=== PATIENT | female | born 1965 | race Caucasian/White ===

== ENCOUNTER 2016-12-23 05:44 | Day surgery (SDC) | payer OTHER ==
[~2016-12-23] VITALS: Ht 154.9 cm; Wt 77.4 kg
[~2016-12-23 05:44] MED LIST: RIVA20TA PO; TELM1TAB2 PO; folic acid PO
[2016-12-23 06:14] VITALS: BP 118/84
[2016-12-23] MEDS ORDERED: TELM1TAB PO (06:14)
[2016-12-23] MEDS ORDERED: LACTATED RINGERS 1,000 ML IV SCH (06:31)
[2016-12-23] MEDS ORDERED: PROPOFOL 10 MG/ML, 20ML ONE (07:29)
[2016-12-23] MEDS ORDERED: DEXAMETHASONE 4 MG/ML, 1ML ONE (07:29)
[2016-12-23] MEDS ORDERED: ONDANSETRON 2MG/ML, 2ML ONE (07:29)
[2016-12-23] MEDS ORDERED: MIDAZOLAM 1 MG/ML, 2ML IV PRN (08:00)
[2016-12-23] MEDS ORDERED: OXYcodone 5 MG/5 ML ORAL.SOL UDC PO PRN (08:00)
[2016-12-23] MEDS ORDERED: ALBUTEROL SULFATE 2.5 MG/3 ML NPPB PRN (08:00)
[2016-12-23] MEDS ORDERED: HYDROmorphone 1 MG/ML, 1ML IV PRN (08:00)
[2016-12-23] MEDS ORDERED: FENTANYL PF 100 MCG/2ML IV PRN (08:00)
[2016-12-23] MEDS ORDERED: PROMETHAZINE 25 MG/ML, 1ML IV PRN (08:00)
[2016-12-23] MEDS ORDERED: ACETAMINOPHEN 325 MG TABLET PO PRN (08:00)
[2016-12-23] MEDS ORDERED: ONDANSETRON 2MG/ML, 2ML IVPush PRN (08:00)
[2016-12-23] MEDS ORDERED: LABETALOL 5MG/ML, 20ML IV PRN (08:00)
[2016-12-23] MEDS ORDERED: hydrALAzine 20 MG/ML, 1ML IV PRN (08:00)
[2016-12-23] MEDS ORDERED: MEPERIDINE/PF 25MG/0.5ML IVPush PRN (08:00)
== END 2016-12-23 09:00 ==
LOC: OR 05:44
PROVIDERS: ATTEND Surgery
DX: K57.30 Diverticulosis of large intestine without perforation or abscess without bleeding (principal); I10 Essential (primary) hypertension; Z93.3 Colostomy status; Z85.118 Personal history of other malignant neoplasm of bronchus and lung; Z98.890 Other specified postprocedural states; Z91.09 Other allergy status, other than to drugs and biological substances
CPT/HCPCS: 44388; J1100; J2405; J2704; J7120

== ENCOUNTER 2017-01-26 07:18 | Inpatient (IN) | payer OTHER ==
[~2017-01-26] VITALS: Ht 154.9 cm; Wt 83.5 kg
[~2017-01-26 07:18] MED LIST changes: +TELM1TAB PO
[2017-01-26 07:51] VITALS: BP 125/88
[2017-01-26] MEDS ORDERED: LACTATED RINGERS 1,000 ML IV SCH (08:07)
[2017-01-26] MEDS ORDERED: VITA1TAB19 PO (08:07)
[2017-01-26] MEDS ORDERED: [UNRECOGNIZED DRUG - OTHER] PO (08:07)
[2017-01-26] MEDS ORDERED: POTA10TA6 PO (08:07)
[2017-01-26] MEDS ORDERED: LIDOCAINE 1%, 2ML ONE (08:16)
[2017-01-26] MEDS ORDERED: LIDOCAINE 1%, 2ML SQ PRN (08:30)
[2017-01-26] MEDS ORDERED: cloniDINE/PF 100 MCG/ML, 10 ML ONE (09:21)
[2017-01-26] MEDS ORDERED: FENTANYL PF 100 MCG/2ML ONE ×3 (09:40→12:56)
[2017-01-26] MEDS ORDERED: HYDROmorphone 1 MG/ML, 1ML ONE (09:41)
[2017-01-26] MEDS ORDERED: ROCURONIUM 10 MG/ML ONE ×3 (09:45)
[2017-01-26] MEDS ORDERED: NEOSTIGMINE 1 MG/ML, 10ML ONE (09:45)
[2017-01-26] MEDS ORDERED: LIDOCAINE-MPF 2% ,5ML ONE (09:45)
[2017-01-26] MEDS ORDERED: PROPOFOL 10 MG/ML, 20ML ONE (09:45)
[2017-01-26] MEDS ORDERED: GLYCOPYRROLATE 0.2MG/1ML, 5ML ONE (09:45)
[2017-01-26] MEDS ORDERED: CEFOTETAN 2 GM ONE (09:45)
[2017-01-26] MEDS ORDERED: ONDANSETRON 2MG/ML, 2ML ONE (09:45)
[2017-01-26] MEDS ORDERED: INDOCYANINE GREEN 25 MG VIAL ONE (10:23)
[2017-01-26] MEDS ORDERED: ONDANSETRON 2MG/ML, 2ML IVPush PRN (12:30)
[2017-01-26] MEDS ORDERED: hydrALAzine 20 MG/ML, 1ML IV PRN (12:30)
[2017-01-26] MEDS ORDERED: LABETALOL 5MG/ML, 20ML IV PRN (12:30)
[2017-01-26] MEDS ORDERED: FENTANYL PF 100 MCG/2ML IV PRN (12:30)
[2017-01-26] MEDS ORDERED: OXYcodone 5 MG/5 ML ORAL.SOL UDC PO PRN ×2 (12:30→15:30)
[2017-01-26] MEDS ORDERED: PROMETHAZINE 25 MG/ML, 1ML IV PRN (12:30)
[2017-01-26] MEDS ORDERED: ACETAMINOPHEN 325 MG TABLET PO PRN (12:30)
[2017-01-26] MEDS ORDERED: MIDAZOLAM 1 MG/ML, 2ML IV PRN (12:30)
[2017-01-26] MEDS ORDERED: ALBUTEROL SULFATE 2.5 MG/3 ML ONE (13:00)
[2017-01-26] MEDS ORDERED: HYDROmorphone 2 MG/ML, 1ML ONE (13:26)
[2017-01-26] MEDS: HYDROmorphone 1 MG/ML, 1ML IV PRN ×2 (13:28→13:42)
[2017-01-26] MEDS ORDERED: DIPHENHYDRAMINE 50 MG/ML, 1ML ONE (13:32)
[2017-01-26] MEDS ORDERED: DIPHENHYDRAMINE 50 MG/ML, 1ML IVPush PRN (14:00)
[2017-01-26 14:50] VITALS: BP 124/72
[2017-01-26] MEDS ORDERED: LORazepam 1MG TABLET PO PRN (15:30)
[2017-01-26] MEDS ORDERED: LORazepam 2 MG/ML, 1ML IV PRN (15:30)
[2017-01-26] MEDS ORDERED: HYDROmorphone 1 MG/ML, 1ML IV PRN ×2 (15:30)
[2017-01-26] MEDS: ACETAMINOPHEN 500 MG TABLET PO SCH ×2 (15:53→21:38)
[2017-01-26] MEDS: IBUPROFEN 600 MG TABLET PO SCH ×2 (15:53→23:32)
[2017-01-26] MEDS: POTASSIUM CHLORIDE 20 MEQ in D5%-0.45% NACL 1,000 ML IV SCH (15:53)
[2017-01-26 18:47] VITALS: BP 107/74
[2017-01-26 23:15] VITALS: BP 100/61
[2017-01-27 03:07] VITALS: BP 110/71
[2017-01-27 03:34] LABS: HEMATOCRIT 34.1 % (34.6-47.8); HEMOGLOBIN 11.5 g/dL (11.7-16.4); WHITE BLOOD COUNT 10.6 x10^3/uL (3.4-10)
[2017-01-27 03:41] LABS: BLOOD UREA NITROGEN 16 mg/dL (7-18)
[2017-01-27] MEDS: ACETAMINOPHEN 500 MG TABLET PO SCH ×4 (03:42→21:30)
[2017-01-27 07:58] VITALS: BP 106/64
[2017-01-27] MEDS: IBUPROFEN 600 MG TABLET PO SCH ×3 (08:10→23:46)
[2017-01-27] MEDS: ENOXAPARIN 40 MG/0.4 ML SQ SCH (09:09)
[2017-01-27] MEDS: POTASSIUM CHLORIDE 20 MEQ in D5%-0.45% NACL 1,000 ML IV SCH (11:42)
[2017-01-27 13:05] VITALS: BP 122/70
[2017-01-27 18:34] VITALS: BP 109/70
[2017-01-28 03:00] VITALS: BP 106/67
[2017-01-28] MEDS: ACETAMINOPHEN 500 MG TABLET PO SCH ×2 (03:30→09:10)
[2017-01-28 05:19] LABS: HEMATOCRIT 33.6 % (34.6-47.8); HEMOGLOBIN 11.4 g/dL (11.7-16.4); WHITE BLOOD COUNT 6.4 x10^3/uL (3.4-10)
[2017-01-28 05:29] LABS: BLOOD UREA NITROGEN 11 mg/dL (7-18)
[2017-01-28 06:45] VITALS: BP 116/73
[2017-01-28] MEDS: POTASSIUM CHLORIDE 20 MEQ in D5%-0.45% NACL 1,000 ML IV SCH (07:54)
[2017-01-28] MEDS: ENOXAPARIN 40 MG/0.4 ML SQ SCH (07:59)
[2017-01-28] MEDS: IBUPROFEN 600 MG TABLET PO SCH (07:59)
[2017-01-28] MEDS ORDERED: TRAM-47 PO (09:35)
== END 2017-01-28 10:49 | disposition home or self-care (01) | DRG 941 ==
LOC: ORIP 07:18 → 4NOR 14:51
PROVIDERS: ADMIT Surgery; ATTEND Surgery
PROC: 0DBB4ZZ Excision of Ileum, Percutaneous Endoscopic Approach (ICD-10-PCS; principal; 2017-01-26 09:30)
DX: Z46.89 Encounter for fitting and adjustment of other specified devices (principal)
CPT/HCPCS: 36415; 80048; 82040; 85025; 88304; 94640; J1170; J1650; J2405; J2704; J2710; J3010; J3480; J3490; J0735; J1200; J7120; S0074

== ENCOUNTER → 2017-03-10 | Outpatient (CLI) | payer OTHER ==
[~2017-03-10] MED LIST changes: +POTA10TA6 PO; +TRAM-47 PO; +VITA1TAB19 PO; +[UNRECOGNIZED DRUG - OTHER] PO
== END | disposition home or self-care (01) ==
LOC: RAD 08:08
PROVIDERS: ATTEND Surgery
DX: K56.699 Other intestinal obstruction unspecified as to partial versus complete obstruction (principal); Z93.2 Ileostomy status
CPT/HCPCS: 74270

== ENCOUNTER 2017-04-10 14:09 | Inpatient (IN) | payer OTHER ==
[~2017-04-10] VITALS: Ht 154.9 cm; Wt 81.1 kg
[2017-04-10] MEDS ORDERED: SODIUM CHLORIDE 0.9% 1,000ML IVBOLUS ONE ×2 (15:00→18:00)
[2017-04-10] MEDS ORDERED: SODIUM CHLORIDE FLUSH 10ML SYR IVF ONE (15:00)
[2017-04-10 15:30] LABS: RAPID INFLUENZA A Negative (Negative); RAPID INFLUENZA B Negative (Negative)
[2017-04-10 15:53] LABS: HEMATOCRIT 39.9 % (34.6-47.8); HEMOGLOBIN 13.5 g/dL (11.7-16.4)
[2017-04-10 16:05] LABS: BLOOD UREA NITROGEN 11 mg/dL (7-18)
[2017-04-10 16:09] LABS: ASPARTATE AMINO TRANSFERASE 18 U/L (15-37)
[2017-04-10] MEDS ORDERED: CEFTRIAXONE PMX 1GM/50ML 50 ML ONE (16:52)
[2017-04-10 17:02] LABS: IS PT STATUS REG ER OR PRE ER? YES
[2017-04-10] MEDS ORDERED: CEFTRIAXONE PMX 1GM/50ML 50 ML IV ONE (17:30)
[2017-04-10] MEDS ORDERED: SODIUM CHLORIDE 0.9% 1,000 ML IV ONE (18:50)
[2017-04-10] MEDS ORDERED: DIPHENHYDRAMINE 50 MG/ML, 1ML ONE (19:00)
[2017-04-10] MEDS ORDERED: DIPHENHYDRAMINE 50 MG/ML, 1ML IVPush ONE (19:30)
[2017-04-10] MEDS ORDERED: OMNIPAQUE 350 MG/ML, 100ML BOTTLE ONE (20:56)
[2017-04-10] MEDS ORDERED: RIVAROXABAN 20 MG TABLET PO ONE (21:00)
[2017-04-10] MEDS ORDERED: IBUPROFEN 200 MG TABLET ONE (21:03)
[2017-04-10] MEDS ORDERED: IBUPROFEN 200 MG TABLET PO ONE (21:30)
[2017-04-10] MEDS ORDERED: AZITHROMYCIN 500 MG in SODIUM CHLORIDE 0.9% 250 ML IV ONE (21:30)
[2017-04-10] MEDS: SODIUM CHLORIDE 0.9% 1,000 ML IV SCH (22:20)
[2017-04-10] MEDS ORDERED: POLYETHYLENE GLYCOL 17 GM PACKET PO PRN (22:30)
[2017-04-10] MEDS ORDERED: ACETAMINOPHEN 325 MG TABLET PO PRN (22:30)
[2017-04-10] MEDS ORDERED: ONDANSETRON 2MG/ML, 2ML IVPush PRN (22:30)
[2017-04-10] MEDS ORDERED: BISACODYL 10 MG SUPP PR PRN (22:30)
[2017-04-10 22:40] VITALS: BP 134/77
[2017-04-11 02:37] VITALS: BP 151/89
[2017-04-11] MEDS: SODIUM CHLORIDE 0.9% 1,000 ML IV SCH ×2 (05:18→16:48)
[2017-04-11 05:46] LABS: HEMATOCRIT 36.5 % (34.6-47.8); HEMOGLOBIN 12.4 g/dL (11.7-16.4); WHITE BLOOD COUNT 6.1 x10^3/uL (3.4-10)
[2017-04-11 05:50] LABS: BLOOD UREA NITROGEN 12 mg/dL (7-18)
[2017-04-11 05:55] LABS: ASPARTATE AMINO TRANSFERASE 17 U/L (15-37)
[2017-04-11 07:25] VITALS: BP 155/95
[2017-04-11 08:42] VITALS: BP 140/91
[2017-04-11] MEDS: POTASSIUM CHLORIDE 10 MEQ TABLET.ER PO SCH (10:03)
[2017-04-11] MEDS: MULTIVITS,STRESS FORMULA 1 TABLET PO SCH (10:03)
[2017-04-11] MEDS: SENNA/DOCUSATE TABLET PO SCH (10:04)
[2017-04-11] MEDS ORDERED: IBUPROFEN 200 MG TABLET PO PRN (12:30)
[2017-04-11 15:00] VITALS: BP 146/92
[2017-04-11] MEDS ORDERED: CEFTRIAXONE PMX 1GM/50ML 50 ML IV SCH (17:00)
[2017-04-11] MEDS: RIVAROXABAN 20 MG TABLET PO SCH (18:32)
[2017-04-11 19:45] VITALS: BP 155/89
[2017-04-11] MEDS ORDERED: AZITHROMYCIN 500 MG in SODIUM CHLORIDE 0.9% 250 ML IV SCH (21:30)
[2017-04-12 02:42] VITALS: BP 143/94
[2017-04-12 05:56] LABS: HEMOGLOBIN 11.8 g/dL (11.7-16.4); WHITE BLOOD COUNT 5.3 x10^3/uL (3.4-10)
[2017-04-12 06:13] LABS: ASPARTATE AMINO TRANSFERASE 17 U/L (15-37); BLOOD UREA NITROGEN 6 mg/dL (7-18)
[2017-04-12 07:45] VITALS: BP 176/105
[2017-04-12] MEDS: SODIUM CHLORIDE 0.9% 1,000 ML IV SCH (08:00)
[2017-04-12] MEDS ORDERED: CEFD300C37 PO (08:51)
[2017-04-12] MEDS ORDERED: DOXY100T PO (08:51)
[2017-04-12] MEDS: RIVAROXABAN 20 MG TABLET PO SCH (09:00)
[2017-04-12] MEDS ORDERED: AZITHROMYCIN 500 MG TABLET PO SCH (09:00)
[2017-04-12] MEDS: MULTIVITS,STRESS FORMULA 1 TABLET PO SCH (09:24)
[2017-04-12] MEDS: POTASSIUM CHLORIDE 10 MEQ TABLET.ER PO SCH (09:24)
[2017-04-12] MEDS: SENNA/DOCUSATE TABLET PO SCH (09:34)
[2017-04-12] MEDS ORDERED: CEFTRIAXONE PMX 1GM/50ML 50 ML IV SCH (10:00)
== END 2017-04-12 10:45 | disposition home or self-care (01) | DRG 871 ==
LOC: ED 17:38 → EDIP 21:13 → 4NOR 22:34
PROVIDERS: ADMIT Surgery; ATTEND Surgery
DX: A41.9 Sepsis, unspecified organism (principal); J18.1 Lobar pneumonia, unspecified organism; C79.31 Secondary malignant neoplasm of brain; D68.69 Other thrombophilia; C34.90 Malignant neoplasm of unspecified part of unspecified bronchus or lung; G81.94 Hemiplegia, unspecified affecting left nondominant side; I10 Essential (primary) hypertension; Z82.3 Family history of stroke; Z82.49 Family history of ischemic heart disease and other diseases of the circulatory system; Z83.3 Family history of diabetes mellitus; Z86.718 Personal history of other venous thrombosis and embolism; Z92.21 Personal history of antineoplastic chemotherapy; Z90.89 Acquired absence of other organs; Z88.8 Allergy status to other drugs, medicaments and biological substances; Z91.041 Radiographic dye allergy status
CPT/HCPCS: 36415; 71020; 71275; 80053; 81001; 83605; 83735; 84484; 85025; 87040; 87086; 87400; 93005; 93970; 96361; 96365; 96367; 96375; J0456; J0696; Q9967; J1200; J7030; J7050

== ENCOUNTER 2017-04-25 10:34 | Day surgery (SDC) | payer OTHER ==
[~2017-04-25] VITALS: Ht 154.9 cm; Wt 77.4 kg
[~2017-04-25 10:34] MED LIST changes: +CEFD300C37 PO; +DOXY100T PO
[2017-04-25] MEDS ORDERED: LACTATED RINGERS 1,000 ML IV SCH (10:55)
[2017-04-25] MEDS ORDERED: LIDOCAINE 1%, 2ML ONE (10:57)
[2017-04-25 10:58] VITALS: BP 143/96
[2017-04-25] MEDS ORDERED: LIDOCAINE 1%, 2ML SQ PRN (11:00)
[2017-04-25] MEDS ORDERED: MIDAZOLAM 1 MG/ML, 2ML ONE (12:09)
[2017-04-25] MEDS ORDERED: FENTANYL PF 100 MCG/2ML ONE (12:09)
[2017-04-25] MEDS ORDERED: PROPOFOL 50 ML ONE (12:10)
[2017-04-25] MEDS ORDERED: DEXAMETHASONE 4 MG/ML, 1ML ONE ×2 (12:20)
[2017-04-25] MEDS ORDERED: ONDANSETRON 2MG/ML, 2ML ONE (12:20)
[2017-04-25] MEDS ORDERED: KETOROLAC 30 MG/1 ML ONE (12:21)
[2017-04-25] MEDS ORDERED: FENTANYL PF 100 MCG/2ML IV PRN (13:00)
[2017-04-25] MEDS ORDERED: OXYcodone 5 MG/5 ML ORAL.SOL UDC PO PRN (13:00)
[2017-04-25] MEDS ORDERED: PROMETHAZINE 25 MG/ML, 1ML IV PRN (13:00)
[2017-04-25] MEDS ORDERED: ONDANSETRON 2MG/ML, 2ML IVPush PRN (13:00)
[2017-04-25] MEDS ORDERED: ACETAMINOPHEN 325 MG TABLET PO PRN (13:00)
[2017-04-25] MEDS ORDERED: MEPERIDINE/PF 25MG/0.5ML IVPush PRN (13:00)
[2017-04-25] MEDS ORDERED: HYDROmorphone 1 MG/ML, 1ML IV PRN (13:00)
[2017-04-25] MEDS ORDERED: LABETALOL 5MG/ML, 20ML IV PRN (13:00)
[2017-04-25] MEDS ORDERED: hydrALAzine 20 MG/ML, 1ML IV PRN (13:00)
== END 2017-04-25 14:10 ==
LOC: OUT 10:34
PROVIDERS: ATTEND Internal Medicine
DX: K91.30 Postprocedural intestinal obstruction, unspecified as to partial versus complete (principal); Z98.0 Intestinal bypass and anastomosis status; Z88.8 Allergy status to other drugs, medicaments and biological substances; Z85.118 Personal history of other malignant neoplasm of bronchus and lung; Z86.73 Personal history of transient ischemic attack (TIA), and cerebral infarction without residual deficits; Z93.2 Ileostomy status
CPT/HCPCS: 45340; C1725; J1100; J1885; J2250; J2405; J2704; J3010

== ENCOUNTER 2017-05-02 07:58 | Day surgery (SDC) | payer OTHER ==
[~2017-05-02] VITALS: Ht 154.9 cm; Wt 78.7 kg
[2017-05-02] MEDS ORDERED: LACTATED RINGERS 1,000 ML IV SCH (08:15)
[2017-05-02 08:18] VITALS: BP 147/91
[2017-05-02] MEDS ORDERED: PROPOFOL 10 MG/ML, 20ML ONE (08:44)
[2017-05-02] MEDS ORDERED: LIDOCAINE-MPF 2% ,5ML ONE (08:44)
== END 2017-05-02 11:00 ==
LOC: OUT 07:58
PROVIDERS: ATTEND Internal Medicine Geriatric Medicine
DX: K91.30 Postprocedural intestinal obstruction, unspecified as to partial versus complete (principal); Z98.0 Intestinal bypass and anastomosis status; Z98.890 Other specified postprocedural states; Z88.8 Allergy status to other drugs, medicaments and biological substances; Z91.09 Other allergy status, other than to drugs and biological substances; Z93.2 Ileostomy status
CPT/HCPCS: 45340; C1725; J2704; J3490

== ENCOUNTER 2017-05-14 11:46 | Emergency (ER) | payer OTHER ==
[~2017-05-14] VITALS: Ht 154.9 cm; Wt 79.3 kg
[2017-05-14] MEDS ORDERED: HYDROcodone/APAP 5/325 TABLET PO ONE (12:30)
[2017-05-14] MEDS ORDERED: HYDROcodone/APAP 5/325 TABLET ONE ×2 (12:33→12:34)
[2017-05-14 15:53] VITALS: BP 132/76
[2017-05-15] MEDS ORDERED: TELM1TAB2 PO (07:47)
[2017-05-15] MEDS ORDERED: HYDR-3240 PO (08:05)
== END 2017-05-14 16:20 | disposition home or self-care (01) ==
LOC: ED 12:15
DX: S42.215A Unspecified nondisplaced fracture of surgical neck of left humerus, initial encounter for closed fracture (principal); I10 Essential (primary) hypertension; C79.31 Secondary malignant neoplasm of brain; C34.90 Malignant neoplasm of unspecified part of unspecified bronchus or lung; Z86.718 Personal history of other venous thrombosis and embolism; W01.0XXA Fall on same level from slipping, tripping and stumbling without subsequent striking against object, initial encounter; Y93.89 Activity, other specified; Y92.812 Truck as the place of occurrence of the external cause; Y99.8 Other external cause status
CPT/HCPCS: 29505; 72050; 99284

== ENCOUNTER 2017-05-15 06:20 | Day surgery (SDC) | payer OTHER ==
[~2017-05-15] VITALS: Ht 154.9 cm; Wt 78.9 kg
[2017-05-15] MEDS ORDERED: LACTATED RINGERS 1,000 ML IV SCH (07:17)
[2017-05-15 07:47] VITALS: BP 127/83
[2017-05-15] MEDS ORDERED: TELM1TAB2 PO (07:47)
[2017-05-15] MEDS ORDERED: HYDR-3240 PO (08:05)
[2017-05-15] MEDS ORDERED: PROPOFOL 10 MG/ML, 20ML ONE (10:15)
[2017-05-15] MEDS ORDERED: FENTANYL PF 100 MCG/2ML IV PRN (10:30)
[2017-05-15] MEDS ORDERED: MEPERIDINE/PF 25MG/0.5ML IVPush PRN (10:30)
[2017-05-15] MEDS ORDERED: HYDROmorphone 1 MG/ML, 1ML IV PRN (10:30)
[2017-05-15] MEDS ORDERED: DIAZEPAM 5 MG/ML, 2ML IVPush PRN (10:30)
[2017-05-15] MEDS ORDERED: ONDANSETRON 2MG/ML, 2ML IVPush PRN (10:30)
[2017-05-15] MEDS ORDERED: LORazepam 2 MG/ML, 1ML IVPush PRN (10:30)
[2017-05-15] MEDS ORDERED: MIDAZOLAM 1 MG/ML, 2ML IV PRN (10:30)
[2017-05-15] MEDS ORDERED: PROMETHAZINE 25 MG/ML, 1ML IV PRN (10:30)
[2017-05-15] MEDS ORDERED: hydrALAzine 20 MG/ML, 1ML IV PRN (10:30)
[2017-05-15] MEDS ORDERED: HYDROcodone/APAP 7.5-325MG/15ML UDC PO PRN (10:30)
[2017-05-15] MEDS ORDERED: ALBUTEROL/IPRATROPIUM 2.5MG/0.5MG, 3 ML NPPB PRN (10:30)
[2017-05-15] MEDS ORDERED: LABETALOL 5MG/ML, 20ML IV PRN (10:30)
== END 2017-05-15 11:50 ==
LOC: OUT 06:20
PROVIDERS: ATTEND Internal Medicine
DX: K56.699 Other intestinal obstruction unspecified as to partial versus complete obstruction (principal); I10 Essential (primary) hypertension; Z88.8 Allergy status to other drugs, medicaments and biological substances; Z91.09 Other allergy status, other than to drugs and biological substances; Z98.0 Intestinal bypass and anastomosis status
CPT/HCPCS: 45340; C1725; J2704; J7120

== ENCOUNTER 2017-05-30 08:28 | Inpatient (IN) | payer OTHER ==
[~2017-05-30] VITALS: Ht 154.9 cm; Wt 78.1 kg
[~2017-05-30 08:28] MED LIST changes: +CEFAZOLIN 1,000 MG ONE; +DEXAMETHASONE 4 MG/ML, 1ML ONE; +FENTANYL PF 250 MCG/5ML ONE; +GLYCOPYRROLATE 0.2MG/1ML, 5ML ONE; +HYDR-3240 PO; +MIDAZOLAM 1 MG/ML, 2ML ONE; +NEOSTIGMINE 1 MG/ML, 10ML ONE; +ONDANSETRON 2MG/ML, 2ML ONE; +PHENYLEPHRINE 10 MG/ML ONE; +PROPOFOL 10 MG/ML, 20ML ONE; +ROCURONIUM 10 MG/ML,10ML ONE; +SUCCINYLCHOLINE 20 MG/ML, 10ML ONE
[2017-05-30 08:53] VITALS: BP 139/92
[2017-05-30] MEDS ORDERED: GABAPENTIN 300 MG CAPSULE PO ONE (08:55)
[2017-05-30] MEDS ORDERED: ACETAMINOPHEN 500 MG TABLET PO ONE (08:55)
[2017-05-30] MEDS ORDERED: LACTATED RINGERS 1,000 ML IV SCH (08:55)
[2017-05-30] MEDS ORDERED: PLEASE ENTER HEIGHT AND WEIGHT MC SCH (09:30)
[2017-05-30] MEDS ORDERED: METRONIDAZOLE PMX 500MG/100ML 100 ML ONE (11:18)
[2017-05-30] MEDS ORDERED: OXYcodone 5 MG/5 ML ORAL.SOL UDC PO PRN (11:30)
[2017-05-30] MEDS ORDERED: ONDANSETRON 2MG/ML, 2ML IVPush PRN (11:30)
[2017-05-30] MEDS ORDERED: ACETAMINOPHEN 325 MG TABLET PO PRN (11:30)
[2017-05-30] MEDS ORDERED: HYDROcodone/APAP 7.5-325MG/15ML UDC PO PRN (11:30)
[2017-05-30] MEDS ORDERED: HYDROmorphone 1 MG/ML, 1ML IV PRN (11:30)
[2017-05-30] MEDS ORDERED: FENTANYL PF 100 MCG/2ML ONE ×3 (11:47→13:03)
[2017-05-30] MEDS ORDERED: ACETAMINOPHEN 650 MG/20.3 ML UDC ONE (12:18)
[2017-05-30] MEDS ORDERED: OXYcodone 5 MG/5 ML ORAL.SOL UDC ONE (12:18)
[2017-05-30] MEDS: FENTANYL PF 100 MCG/2ML IV PRN ×3 (12:21→13:05)
[2017-05-30] MEDS ORDERED: DIPHENHYDRAMINE 50 MG/ML, 1ML IVPush PRN (14:00)
[2017-05-30] MEDS ORDERED: CALCIUM CARBONATE 500 MG TAB.CHEW PO PRN (14:00)
[2017-05-30] MEDS ORDERED: ACETAMINOPHEN 500 MG TABLET PO SCH (14:00)
[2017-05-30] MEDS ORDERED: OXYcodone IR 5MG TABLET PO PRN (14:00)
[2017-05-30] MEDS ORDERED: TRAZODONE 50MG TABLET PO PRN (14:00)
[2017-05-30] MEDS ORDERED: DEXAMETHASONE 4 MG/ML, 1ML IVPush PRN (14:00)
[2017-05-30] MEDS ORDERED: DIPHENHYDRAMINE 25 MG CAPSULE PO PRN (14:00)
[2017-05-30] MEDS ORDERED: LORazepam 2 MG/ML, 1ML IVPush PRN (14:00)
[2017-05-30] MEDS ORDERED: ONDANSETRON 2MG/ML, 2ML IV PRN (14:00)
[2017-05-30] MEDS ORDERED: LORazepam 1MG TABLET PO PRN (14:00)
[2017-05-30] MEDS ORDERED: MORPHINE SULFATE 4 MG/ML, 1ML IVPush PRN (14:00)
[2017-05-30] MEDS: D5%-0.45NACL+KCL 20MEQ 1,000 ML IV SCH (16:10)
[2017-05-30] MEDS: ACETAMINOPHEN 500 MG TABLET PO SCH (17:18)
[2017-05-30] MEDS: IBUPROFEN 800 MG TABLET PO SCH ×2 (17:18→21:17)
[2017-05-30 19:10] VITALS: BP 127/87
[2017-05-31 00:06] VITALS: BP 96/60
[2017-05-31] MEDS: ACETAMINOPHEN 500 MG TABLET PO SCH ×4 (03:37→18:34)
[2017-05-31 04:06] VITALS: BP 112/72
[2017-05-31 07:19] VITALS: BP 101/66
[2017-05-31] MEDS: IBUPROFEN 800 MG TABLET PO SCH ×3 (08:06→21:45)
[2017-05-31 09:38] LABS: BASOPHILS # (AUTO) 0.01 x10^3/uL (0-0.1); BASOPHILS % (AUTO) 0 % (0-1); EOSINOPHILS # (AUTO) 0.37 x10^3/uL (0-0.4); EOSINOPHILS % (AUTO) 4 % (1-7); LYMPHOCYTES # (AUTO) 0.79 x10^3/uL (1-3.4); LYMPHOCYTES % (AUTO) 9 % (22-44); MD NO; MEAN CORPUSCULAR HEMOGLOBIN 28.6 pg (27.0-34.8); MEAN CORPUSCULAR HGB CONC 33.4 g/dL (32.4-35.8); MEAN CORPUSCULAR VOLUME 85.7 fL (80-100); MEAN PLATELET VOLUME 7.3 fL (7.4-10.4); MONOCYTES # (AUTO) 0.52 x10^3/uL (0.2-0.8); MONOCYTES % (AUTO) 6 % (2-9); NEUTROPHILS % (AUTO) 82 % (42-75); PLATELET COUNT 261 x10^3/uL (130-400); RED BLOOD COUNT 4.25 x10^6/uL (3.82-5.3); RED CELL DISTRIBUTION WIDTH 14.2 % (9.6-15.2)
[2017-05-31 09:49] LABS: ANION GAP 7 mmol/L (5-15); CALCIUM 8.2 mg/dL (8.5-10.1); CHLORIDE 104 mmol/L (98-107); CREATININE 0.62 mg/dL (0.55-1.02)
[2017-05-31] MEDS: D5%-0.45NACL+KCL 20MEQ 1,000 ML IV SCH (10:30)
[2017-05-31] MEDS ORDERED: ENOXAPARIN 40 MG/0.4 ML SQ SCH (12:00)
[2017-05-31 14:20] VITALS: BP 114/71
[2017-05-31 18:45] VITALS: BP 123/74
[2017-06-01] MEDS: ACETAMINOPHEN 500 MG TABLET PO SCH ×2 (00:48→06:16)
[2017-06-01 01:45] VITALS: BP 112/63
[2017-06-01] MEDS: D5%-0.45NACL+KCL 20MEQ 1,000 ML IV SCH (06:30)
[2017-06-01 08:06] VITALS: BP 137/87
[2017-06-01] MEDS: IBUPROFEN 800 MG TABLET PO SCH (08:32)
[2017-06-01] MEDS ORDERED: TRAM50TA2 PO (09:36)
== END 2017-06-01 10:22 | disposition home or self-care (01) | DRG 330 ==
LOC: ORIP 08:28 → 4NOR 13:41 → DCLOUNGE 06-01 10:05
PROVIDERS: ADMIT Surgery; ATTEND Surgery
PROC: 0DBB0ZZ Excision of Ileum, Open Approach (ICD-10-PCS; principal; 2017-05-30 11:00)
DX: Z43.2 Encounter for attention to ileostomy (principal); C34.90 Malignant neoplasm of unspecified part of unspecified bronchus or lung
CPT/HCPCS: 36415; 80048; 82040; 85025; 88304; J0690; J1100; J1650; J2250; J2405; J2704; J2710; J3010; J3490; J0330; J2370; J3480; J7120

== ENCOUNTER → 2017-07-06 | Outpatient (CLI) | payer OTHER ==
[~2017-07-06] MED LIST changes: -CEFAZOLIN 1,000 MG ONE; -DEXAMETHASONE 4 MG/ML, 1ML ONE; -FENTANYL PF 250 MCG/5ML ONE; +GADOBUTROL 7.5 MMOL/7.5 ML PFS ONE; -GLYCOPYRROLATE 0.2MG/1ML, 5ML ONE; -MIDAZOLAM 1 MG/ML, 2ML ONE; -NEOSTIGMINE 1 MG/ML, 10ML ONE; -ONDANSETRON 2MG/ML, 2ML ONE; -PHENYLEPHRINE 10 MG/ML ONE; -PROPOFOL 10 MG/ML, 20ML ONE; -ROCURONIUM 10 MG/ML,10ML ONE; -SUCCINYLCHOLINE 20 MG/ML, 10ML ONE; +TRAM50TA2 PO
== END | disposition home or self-care (01) ==
LOC: RAD 11:39
PROVIDERS: ATTEND Psychiatry & Neurology Neurology
DX: G93.89 Other specified disorders of brain (principal); C79.31 Secondary malignant neoplasm of brain; C34.12 Malignant neoplasm of upper lobe, left bronchus or lung
CPT/HCPCS: 70553; A9585

== ENCOUNTER 2017-09-23 14:29 | Inpatient (IN) | payer OTHER ==
[~2017-09-23] VITALS: Ht 154.9 cm; Wt 78.1 kg
[~2017-09-23 14:29] MED LIST changes: -GADOBUTROL 7.5 MMOL/7.5 ML PFS ONE
[2017-09-23] MEDS ORDERED: OMEP-110 PO (14:58)
[2017-09-23] MEDS ORDERED: ONDANSETRON 2MG/ML, 2ML IVPush ONE (15:30)
[2017-09-23] MEDS ORDERED: SODIUM CHLORIDE FLUSH 10ML SYR IVF ONE (15:30)
[2017-09-23] MEDS ORDERED: SODIUM CHLORIDE 0.9% 1,000ML IVBOLUS ONE (15:30)
[2017-09-23 15:58] LABS: BASOPHILS # (AUTO) 0.04 x10^3/uL (0-0.1); BASOPHILS % (AUTO) 0 % (0-1); EOSINOPHILS # (AUTO) 0.26 x10^3/uL (0-0.4); EOSINOPHILS % (AUTO) 2 % (1-7); LYMPHOCYTES # (AUTO) 1.45 x10^3/uL (1-3.4); LYMPHOCYTES % (AUTO) 13 % (22-44); MD NO; MEAN CORPUSCULAR HEMOGLOBIN 27.4 pg (27.0-34.8); MEAN CORPUSCULAR HGB CONC 32.8 g/dL (32.4-35.8); MEAN CORPUSCULAR VOLUME 83.5 fL (80-100); MEAN PLATELET VOLUME 8.1 fL (7.4-10.4); MONOCYTES # (AUTO) 0.48 x10^3/uL (0.2-0.8); MONOCYTES % (AUTO) 4 % (2-9); NEUTROPHILS # (AUTO) 8.78 x10^3/uL (1.8-6.8); NEUTROPHILS % (AUTO) 80 % (42-75); PLATELET COUNT 304 x10^3/uL (130-400); RED BLOOD COUNT 4.71 x10^6/uL (3.82-5.3); RED CELL DISTRIBUTION WIDTH 13.2 % (9.6-15.2)
[2017-09-23 15:59] LABS: CULTURE INDICATED? YES; MICROSCOPIC INDICATED
[2017-09-23 16:10] LABS: ALANINE AMINOTRANSFERASE 20 U/L (12-78); ALBUMIN 3.6 g/dL (3.4-5.0); ANION GAP 8 mmol/L (5-15); CALCIUM 8.9 mg/dL (8.5-10.1); CHLORIDE 107 mmol/L (98-107); CREATININE 0.78 mg/dL (0.55-1.02)
[2017-09-23 16:12] LABS: ALKALINE PHOSPHATASE 181 U/L (45-117); BILIRUBIN,TOTAL 0.3 mg/dL (0.2-1.0); TOTAL PROTEIN 7.4 g/dL (6.4-8.2)
[2017-09-23] MEDS ORDERED: PROCHLORPERAZINE 5 MG/ML, 2ML IVPush ONE (16:30)
[2017-09-23] MEDS ORDERED: PROCHLORPERAZINE 5 MG/ML, 2ML ONE (16:30)
[2017-09-23] MEDS ORDERED: HYDROmorphone 2 MG/ML, 1ML ONE ×2 (16:30→18:28)
[2017-09-23] MEDS: HYDROmorphone 1 MG/ML, 1ML IVPush PRN ×2 (16:36→18:31)
[2017-09-23] MEDS ORDERED: CEFTRIAXONE PMX 1GM/50ML 50 ML ONE (17:29)
[2017-09-23] MEDS ORDERED: CEFTRIAXONE PMX 1GM/50ML 50 ML IV ONE (17:30)
[2017-09-23 18:59] VITALS: BP 149/88
[2017-09-23 19:00] VITALS: BP 149/88
[2017-09-23] MEDS ORDERED: CEFTRIAXONE PMX 1GM/50ML 50 ML IV SCH (19:00)
[2017-09-23] MEDS ORDERED: ACETAMINOPHEN 325 MG TABLET PO PRN (19:00)
[2017-09-23] MEDS ORDERED: POLYETHYLENE GLYCOL 17 GM PACKET PO PRN (19:00)
[2017-09-23] MEDS ORDERED: morphine SULFATE 10 MG/ML, 1ML IVPush PRN (19:00)
[2017-09-23] MEDS ORDERED: DOCUSATE 100 MG CAPSULE PO PRN (19:00)
[2017-09-23] MEDS: NS + 20MEQ KCL 1,000 ML IV SCH (20:07)
[2017-09-23] MEDS: FAMOTIDINE 20 MG TABLET PO SCH (20:15)
[2017-09-23] MEDS ORDERED: LABETALOL 5MG/ML, 20ML IVPush PRN (21:30)
[2017-09-23] MEDS ORDERED: hydrALAzine 20 MG/ML, 1ML IV PRN (21:30)
[2017-09-23] MEDS ORDERED: ENALAPRILAT 1.25 MG/ML, 2ML IV PRN (21:30)
[2017-09-23] MEDS: ONDANSETRON 2MG/ML, 2ML IVPush PRN (23:59)
[2017-09-24] MEDS: OXYcodone IR 5MG TABLET PO PRN ×2 (00:17→04:57)
[2017-09-24 04:03] VITALS: BP 157/90
[2017-09-24 04:45] LABS: BASOPHILS # (AUTO) 0.01 x10^3/uL (0-0.1); BASOPHILS % (AUTO) 0 % (0-1); EOSINOPHILS # (AUTO) 0.08 x10^3/uL (0-0.4); EOSINOPHILS % (AUTO) 1 % (1-7); LYMPHOCYTES # (AUTO) 1.18 x10^3/uL (1-3.4); LYMPHOCYTES % (AUTO) 13 % (22-44); MD NO; MEAN CORPUSCULAR HEMOGLOBIN 27.7 pg (27.0-34.8); MEAN CORPUSCULAR HGB CONC 33.3 g/dL (32.4-35.8); MEAN CORPUSCULAR VOLUME 83.1 fL (80-100); MEAN PLATELET VOLUME 8.5 fL (7.4-10.4); MONOCYTES # (AUTO) 0.42 x10^3/uL (0.2-0.8); MONOCYTES % (AUTO) 5 % (2-9); NEUTROPHILS # (AUTO) 7.63 x10^3/uL (1.8-6.8); NEUTROPHILS % (AUTO) 82 % (42-75); PLATELET COUNT 283 x10^3/uL (130-400); RED BLOOD COUNT 4.42 x10^6/uL (3.82-5.3); RED CELL DISTRIBUTION WIDTH 13.7 % (9.6-15.2)
[2017-09-24 05:47] LABS: ANION GAP 6 mmol/L (5-15); CALCIUM 8.3 mg/dL (8.5-10.1); CHLORIDE 108 mmol/L (98-107)
[2017-09-24 06:42] VITALS: BP 168/91
[2017-09-24] MEDS: RIVAROXABAN 20 MG TABLET PO SCH ×3 (09:00→18:22)
[2017-09-24] MEDS: [UNRECOGNIZED DRUG - OTHER] PO SCH (09:00)
[2017-09-24] MEDS: SENNA/DOCUSATE TABLET PO SCH (09:15)
[2017-09-24] MEDS: FAMOTIDINE 20 MG TABLET PO SCH ×2 (09:16→21:12)
[2017-09-24] MEDS: METOCLOPRAMIDE 5 MG/ML, 2ML IVPush SCH ×2 (11:11→18:24)
[2017-09-24 11:18] VITALS: BP 159/88
[2017-09-24 13:24] VITALS: BP 174/100
[2017-09-24] MEDS: KETOROLAC 30 MG/1 ML IVPush PRN ×2 (13:50→21:08)
[2017-09-24] MEDS: NS + 20MEQ KCL 1,000 ML IV SCH (13:50)
[2017-09-24 14:34] VITALS: BP 126/76
[2017-09-24] MEDS: CEFTRIAXONE PMX 1GM/50ML 50 ML IV SCH (18:24)
[2017-09-24 18:44] VITALS: BP 148/90
[2017-09-25] MEDS: METOCLOPRAMIDE 5 MG/ML, 2ML IVPush SCH ×4 (00:51→19:04)
[2017-09-25 02:12] VITALS: BP 158/93
[2017-09-25] MEDS: KETOROLAC 30 MG/1 ML IVPush PRN ×3 (05:32→17:42)
[2017-09-25 05:40] LABS: ANION GAP 7 mmol/L (5-15); CALCIUM 8.6 mg/dL (8.5-10.1); CHLORIDE 107 mmol/L (98-107); CREATININE 0.56 mg/dL (0.55-1.02)
[2017-09-25 05:43] LABS: BASOPHILS # (AUTO) 0.03 x10^3/uL (0-0.1); BASOPHILS % (AUTO) 0 % (0-1); EOSINOPHILS # (AUTO) 0.23 x10^3/uL (0-0.4); EOSINOPHILS % (AUTO) 3 % (1-7); LYMPHOCYTES # (AUTO) 1.11 x10^3/uL (1-3.4); LYMPHOCYTES % (AUTO) 15 % (22-44); MD NO; MEAN CORPUSCULAR HEMOGLOBIN 27.8 pg (27.0-34.8); MEAN CORPUSCULAR HGB CONC 33.1 g/dL (32.4-35.8); MEAN CORPUSCULAR VOLUME 83.9 fL (80-100); MEAN PLATELET VOLUME 8.4 fL (7.4-10.4); MONOCYTES # (AUTO) 0.49 x10^3/uL (0.2-0.8); MONOCYTES % (AUTO) 7 % (2-9); NEUTROPHILS # (AUTO) 5.74 x10^3/uL (1.8-6.8); NEUTROPHILS % (AUTO) 76 % (42-75); PLATELET COUNT 242 x10^3/uL (130-400); RED BLOOD COUNT 4.45 x10^6/uL (3.82-5.3); RED CELL DISTRIBUTION WIDTH 13.7 % (9.6-15.2)
[2017-09-25] MEDS ORDERED: NS + 40MEQ KCL 1,000 ML IV SCH (06:00)
[2017-09-25] MEDS ORDERED: POTASSIUM CHLORIDE 40 MEQ in SODIUM CHLORIDE 0.9% 500 ML IV ONE (06:00)
[2017-09-25] MEDS ORDERED: NS + 40MEQ KCL 1,000 ML IV ONE (06:00)
[2017-09-25 07:12] VITALS: BP 162/96
[2017-09-25] MEDS: [UNRECOGNIZED DRUG - OTHER] PO SCH (09:00)
[2017-09-25] MEDS: FAMOTIDINE 20 MG TABLET PO SCH ×2 (09:11→21:00)
[2017-09-25] MEDS: SENNA/DOCUSATE TABLET PO SCH (09:21)
[2017-09-25 12:49] VITALS: BP 161/91
[2017-09-25] MEDS: ONDANSETRON 2MG/ML, 2ML IVPush PRN (16:59)
[2017-09-25 20:10] VITALS: BP 152/85
[2017-09-25] MEDS: CEFTRIAXONE PMX 1GM/50ML 50 ML IV SCH (20:27)
[2017-09-26] MEDS: METOCLOPRAMIDE 5 MG/ML, 2ML IVPush SCH ×2 (00:30→10:19)
[2017-09-26 02:46] VITALS: BP 148/84
[2017-09-26 04:38] LABS: BASOPHILS # (AUTO) 0.03 x10^3/uL (0-0.1); BASOPHILS % (AUTO) 0 % (0-1); EOSINOPHILS # (AUTO) 0.22 x10^3/uL (0-0.4); EOSINOPHILS % (AUTO) 3 % (1-7); LYMPHOCYTES # (AUTO) 1.31 x10^3/uL (1-3.4); LYMPHOCYTES % (AUTO) 18 % (22-44); MD NO; MEAN CORPUSCULAR HEMOGLOBIN 27.7 pg (27.0-34.8); MEAN CORPUSCULAR HGB CONC 33.2 g/dL (32.4-35.8); MEAN CORPUSCULAR VOLUME 83.3 fL (80-100); MEAN PLATELET VOLUME 8.3 fL (7.4-10.4); MONOCYTES # (AUTO) 0.53 x10^3/uL (0.2-0.8); MONOCYTES % (AUTO) 7 % (2-9); NEUTROPHILS # (AUTO) 5.41 x10^3/uL (1.8-6.8); NEUTROPHILS % (AUTO) 72 % (42-75); PLATELET COUNT 266 x10^3/uL (130-400); RED BLOOD COUNT 4.45 x10^6/uL (3.82-5.3); RED CELL DISTRIBUTION WIDTH 13.5 % (9.6-15.2)
[2017-09-26 04:49] LABS: ALBUMIN 2.9 g/dL (3.4-5.0); ANION GAP 10 mmol/L (5-15); CALCIUM 8.7 mg/dL (8.5-10.1); CHLORIDE 105 mmol/L (98-107)
[2017-09-26 04:50] LABS: CREATININE 0.53 mg/dL (0.55-1.02)
[2017-09-26] MEDS ORDERED: POTASSIUM CHLORIDE 20 MEQ TAB.ER.PRT PO ONE (06:00)
[2017-09-26] MEDS ORDERED: POTASSIUM ACETATE 20 MEQ in SODIUM CHLORIDE 0.9% 250 ML IV ONE (06:30)
[2017-09-26 07:17] VITALS: BP 151/89
[2017-09-26] MEDS: [UNRECOGNIZED DRUG - OTHER] PO SCH (09:00)
[2017-09-26] MEDS: RIVAROXABAN 20 MG TABLET PO SCH (09:00)
[2017-09-26] MEDS ORDERED: POTASSIUM CHLORIDE 10 MEQ TABLET.ER PO SCH (09:00)
[2017-09-26] MEDS: FAMOTIDINE 20 MG TABLET PO SCH (10:19)
[2017-09-26] MEDS: SENNA/DOCUSATE TABLET PO SCH (10:37)
[2017-09-26 12:37] LABS: ALBUMIN 3.2 g/dL (3.4-5.0); ANION GAP 9 mmol/L (5-15); CHLORIDE 106 mmol/L (98-107); CREATININE 0.54 mg/dL (0.55-1.02)
[2017-09-26 12:38] VITALS: BP 157/100
[2017-09-26] MEDS ORDERED: NITR100C56 PO (16:54)
== END 2017-09-26 17:51 | disposition home or self-care (01) | DRG 389 ==
LOC: ED 16:18 → EDIP 18:19 → 3NW 18:52
PROVIDERS: ADMIT Family Medicine; ATTEND Family Medicine
DX: K56.51 Intestinal adhesions [bands], with partial obstruction (principal); C34.90 Malignant neoplasm of unspecified part of unspecified bronchus or lung; C79.31 Secondary malignant neoplasm of brain; D68.69 Other thrombophilia; G81.94 Hemiplegia, unspecified affecting left nondominant side; N39.0 Urinary tract infection, site not specified; I10 Essential (primary) hypertension; K43.9 Ventral hernia without obstruction or gangrene; Z82.49 Family history of ischemic heart disease and other diseases of the circulatory system; Z82.3 Family history of stroke; Z83.3 Family history of diabetes mellitus; Z86.718 Personal history of other venous thrombosis and embolism; Z92.21 Personal history of antineoplastic chemotherapy; Z88.8 Allergy status to other drugs, medicaments and biological substances; Z91.041 Radiographic dye allergy status
CPT/HCPCS: 36415; 74021; 74176; 76700; 80048; 80053; 81001; 82040; 83690; 83735; 85025; 87086; 96374; 96375; 96376; J0696; J1170; J1885; J2405; J3480; J0780; J2765; J7030; J7050